=== PATIENT | male | born 1965 | race Caucasian/White ===

== ENCOUNTER → 2019-10-05 09:30 | Outpatient (CLI) | payer OTHER, SELFPAY ==
--- NOTE | 2019-10-05 09:40 | MRI_ITS ---
STUDY: MRI BRAIN WITH AND WITHOUT CONTRAST (ATTENTION INTERNAL AUDITORY CANALS - I.A.C.''s) REASON FOR EXAM: Male, 53 years old. L tinnitus, hearing loss TECHNIQUE: Standardized multiplanar fat and water weighted pulse sequences were obtained. 20 mL of IV Dotarem was administered for the contrast portion of the examination. COMPARISON: None. FINDINGS: Normal bilateral temporal bones. Normal bilateral internal auditory canals. There is no demonstrated intracanalicular or cisternal vestibular schwannoma (acoustic neuroma). There is no enhancement of the bilateral VIIth or VIIIth cranial nerves. Normal bilateral cochlea, vestibules and semicircular canals. Normal size of the ventricles and extra-axial spaces for the patient''s age. Normal white matter tracts of the supratentorial brain. Old linear cystic in the posterior aspect of the left superior temporal gyrus. Normal bilateral basal ganglia. Normal thalami. Normal flow voids within the major intracranial circulation suggesting patency by spin echo criteria. Normal venous enhancement. There is no enhancing intra-axial or extra-axial abnormality. There is no extra-axial fluid accumulation. Normal sella turcica, pituitary gland, infundibular stalk, optic chiasm and hypothalamus. Normal tectal plate and pineal gland. Normal midbrain, joan and medulla. Normal cerebellum. Normal basal cisterns. No demonstrated orbital abnormality, within the constraints of a routine brain study. Normal visualized paranasal sinuses. Normal calvarium and skull base. Normal visualized soft tissue structures. Normal visualized upper cervical spine. MRI/Brain W/WO Contrast IMPRESSION: 1. Normal unenhanced and enhanced MRI of the bilateral internal auditory canals (I.A.C''s). 2. 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 Electronically Signed: Ilir Tate MD at 11:23 EDT , Service support ,
== END ==
PROVIDERS: PCP Family Medicine; Referring Provider Otolaryngology; Visit Provider Otolaryngology
DX: H93.12 Tinnitus, left ear (principal); H91.92 Unspecified hearing loss, left ear
CPT/HCPCS: 70553; A9575

== ENCOUNTER → 2020-03-19 13:46 | Outpatient (CLI) | payer OTHER, SELFPAY ==
--- NOTE | 2020-03-19 13:49 | ECHOD_ITS ---
Reason For Study: CEREBRAL INFARCTION Procedure This was a 2D Doppler, Color Flow transthoracic echocardiogram. The exam was of adequate technical quality. Exam performed in department. Left Ventricle Normal LV size. Left ventricular systolic function is normal. The estimated ejection fraction is 65 %. No evidence for diastolic dysfunction. No regional wall motion abnormalities noted. Right Ventricle Normal RV size. Normal systolic function. Atria Normal left atrium. Normal right atrium. No doppler evidence for ASD. Bubble contrast study negative for right to left interatrial shunt. Mitral Valve There is no mitral annular calcification. Normal mitral valve. Trivial mitral valve insufficiency. Tricuspid Valve Normal tricuspid valve. Trivial tricuspid valve insufficiency. Aortic Valve Trisinus/trileaflet aortic valve. Mild focal aortic valve calcification. Pulmonic Valve The pulmonic valve is not well visualized. Trivial pulmonic valve insufficiency. Great Vessels Normal sized aortic root. Pericardium/Pleural No pericardial effusion. Medication 22 gauge I.V. with prn adaptor inserted into left arm. Performed a rapid injection of agitated mix of 9 cc saline and 1cc air to assess for atrial septal defect. MMode/2D Measurements & Calculations LVIDd: 5.1 cm IVSd: 0.78 cm Ao root diam: 3.3 cm LVIDs: 3.3 cm LVPWd: 1.0 cm RVDd: 3.5 cm FS: 34.5 % LAV(MOD-bp): 44.0 ml LVAd ap4: 39.6 cm2 SV(MOD-sp4): 95.2 ml LAV(MOD-bp) Indexed: 19.1 ml/m2 EDV(MOD-sp4): 143.0 ml LAV(MOD-sp2): 63.1 ml EDV(sp4-el): 147.2 ml LAV(MOD-sp4): 28.8 ml LVAs ap4: 19.8 cm2 ESV(MOD-sp4): 47.8 ml ESV(sp4-el): 47.2 ml EF(MOD-sp4): 66.6 % EF(sp4-el): 68.0 % SV(sp4-el): 100.1 ml LA A4 area: 13.0 cm2 LA dimension(2D): 3.6 cm RA A4 area: 14.7 cm2 Time Measurements MV dec time: 0.26 sec Doppler Measurements & Calculations MV E max jin: 102.3 cm/sec Lat Peak E' Jin: 13.5 cm/sec Med Peak E' Jin: 8.9 cm/sec MV A max jin: 64.4 cm/sec E/E' lat: 7.6 E/E' med: 11.4 MV E/A: 1.6 Ao V2 max: 145.3 cm/sec LV V1 max: 109.1 cm/sec PA V2 max: 109.8 cm/sec Ao max P.4 mmHg LV V1 max P.8 mmHg Interpretation Summary Left ventricular systolic function is normal. The estimated ejection fraction is 65 %. Trivial mitral valve insufficiency. Trivial tricuspid valve insufficiency. Mild focal aortic valve calcification. Trivial pulmonic valve insufficiency. No evidence for diastolic dysfunction. Bubble contrast study negative for right to left interatrial shunt. Ordering Physician: Cliff Meyrs Referring Physician: MICHAEL WOOTEN Performed By: Rabia Albarran RDCS
== END ==
PROVIDERS: PCP Family Medicine; Referring Provider Psychiatry & Neurology Neurology; Visit Provider Psychiatry & Neurology Neurology
DX: I63.9 Cerebral infarction, unspecified (principal); I70.0 Atherosclerosis of aorta
CPT/HCPCS: 93306; A4216

== ENCOUNTER → 2020-03-20 10:17 | Outpatient (CLI) | payer OTHER, SELFPAY ==
--- NOTE | 2020-03-20 10:32 | MRI_ITS ---
STUDY: MRI CERVICAL SPINE WITHOUT CONTRAST REASON FOR EXAM: Male, 54 years old. rt parasthesia, pain /numbness right arm and hand TECHNIQUE: Standardized fat and water weighted pulse sequences were obtained in the sagittal and axial planes. COMPARISON: None FINDINGS: Normal foramen magnum and brainstem-cervical cord junction. Normal craniovertebral junction. Normal anterior atlantoaxial articulation. Normal odontoid process. There is straightening of the normal cervical lordosis. Normal vertebral bodies and posterior osseous elements. C2-3: Normal endplates. Normal disc height, signal and morphology. Normal central canal and intervertebral neural foramina. C3-4: Normal endplates. Normal disc height, signal and morphology. Normal central canal and intervertebral neural foramina. C4-5: Normal endplates. Normal disc height, signal and morphology. Normal central canal and intervertebral neural foramina. C5-6: Moderate bilobed disc osteophyte complex produces moderate spinal stenosis with abutment of the right hemicord and mild right neural foraminal stenosis. C6-7: Moderate right paracentral disc osteophyte complex produces moderate spinal stenosis with abutment of the right hemicord and mild right neural foraminal stenosis. C7-T1: Normal endplates. Normal disc height, signal and morphology. Normal central canal and intervertebral neural foramina. Normal cervical cord. Normal visualized soft tissue structures. MRI/Spine Cervical (Routine) IMPRESSION: Multilevel degenerative changes, as described above. Electronically Signed: Garry Dodson MD at 17:05 EDT Tel , Service support ,
== END ==
PROVIDERS: PCP Family Medicine; Referring Provider Physician Assistant Surgical; Visit Provider Physician Assistant Surgical
DX: R20.2 Paresthesia of skin (principal)
CPT/HCPCS: 72141